=== PATIENT | male | born 1955 | race Caucasian/White ===

== ENCOUNTER 2017-01-27 15:40 | Emergency (ER) | payer MEDICARE ==
--- NOTE | ~2017-01-27 | CR72 ---
[facility] A Service of [facility] & [facility] RADIOLOGY TEXT RESULTS PATIENT: ROBERTA HENDRICKSON LOCATION: [facility] : 59 UNIT #: [id number] AGE: [address]: Delgado Headley MD SEX: M ORDER DR: [id number] [facility] [address] [place], [place] [address] [id number] E MR#: [id number] #: [id number] NAME: ROBERTA HENDRICKSON : 1955 SEX: M STUDY DATE/TIME: 01/27/2017 15:18 UNIT: [facility] ROOM: STUDY DESCRIPTION: CR Chest Single View Portable Attending Physician: Delgado Headley M.D. Ordering Physician: Delgado Headley M.D. Primary Care Physician: Generic Doctor Not In System MEDICAL IMAGING REPORT This report is preliminary unless electronic signature is present EXAM Portable chest HISTORY Chest pain today. No injury. FINDINGS The cardiac size and pulmonary vascularity are normal. No infiltrates or effusions. Mild bibasilar linear atelectasis or scarring is new compared to 10/17/2013. Multiple small calcified granulomas in the mid and lower lungs bilaterally. Cardiac and mediastinal contours are normal. IMPRESSION 1. No acute findings and no active disease. 2. Mild linear atelectasis or scarring in both lung bases and incidental small calcified granulomas bilaterally. Dictated by... Unruly Singleton M.D. THIS IS AN ELECTRONICALLY VERIFIED REPORT Unruly Singleton M.D. at 01/27/2017 11:03 PM JOSE/malissa TD: 01/27/2017 21:02 JOB #: [id number] MEDICAL IMAGING REPORT Page 1 of 1 COPY
--- NOTE | ~2017-01-27 | EKG ---
PATIENT: ROBERTA HENDRICKSON UNIT #: [id number] Ventricular Rate: 63 BPM Atrial Rate: 63 BPM P-R Interval: 140 ms QRS Duration: 88 ms Q-T Interval: 452 ms QTC Calculation(Bezet): 462 ms P [place]: 43 degrees Calculated R [place]: 55 degrees Calculated T [place]: 54 degrees Diagnosis Line: Normal sinus rhythm Diagnosis Line: Normal ECG Diagnosis Line: No previous ECGs available Diagnosis Line: Confirmed by DAVID TOMPKINS MD ([id number]) on 01/29/2017 Diagnosis Line: 2:49:44 PM INTERPRETING MD: LEDA DANIELLE
[2017-01-27 15:23] LABS: BASOPHIL% 0.1 % (0-2.5); EOSINOPHIL# 0.1 X10e3 (0-0.7); EOSINOPHIL% 0.9 % (0.0-7.0); HEMATOCRIT 40.9 % (38.0-50.0); HEMOGLOBIN 13.9 gm/dL (13.0-16.0); LYMPHOCYTE# 2.7 X10e3 (1.0-3.5); LYMPHOCYTE% 41.2 % (17.0-45.0); MEAN CELL VOLUME 97.7 FL (83-96); MEAN CORPUSCULAR HEMOGLOBIN 33.3 PG (28-34); MEAN CORPUSCULAR HGB CONC 34.1 g/dL (30-36); MEAN PLATELET VOLUME 8.9 FL (6.5-11.5); MONOCYTE# 0.7 X10e3 (0-1.0); NEUTROPHIL% 46.8 % (40-75); PLATELET COUNT 178 X10e3 (140-420); RED BLOOD COUNT 4.19 X10e (3.90-5.60); RED CELL DISTRIBUTION WIDTH 11.7 % (11.0-15.5); WHITE BLOOD COUNT 6.5 X10e3 (4.0-10.5)
[2017-01-27 15:24] LABS: DIFF IND NO
[2017-01-27 15:32] LABS: POC - CKMB <1.0 ng/mL (0.0-7.9); POC - TROPONIN <0.05 ng/mL (<=0.05)
[2017-01-27 15:46] LABS: ALBUMIN SERUM 4.8 g/dL (3.5-5.0); BILIRUBIN, DIRECT 0.1 mg/dL (0.0-0.2); BILIRUBIN,INDIRECT 0.6 mg/dL (0.0-0.9); BILIRUBIN,TOTAL 0.7 mg/dL (0.2-2.0); BUN/CREATININE RATIO 16.36; CALCIUM SERUM 9.8 mg/dL (8.4-10.2); CREATININE SERUM 1.1 mg/dL (0.6-1.4); GLOM FILT RATE Estimated 73.1 mL/min (>60); POTASSIUM 3.4 mmol/L (3.5-5.1); PROTEIN TOTAL SERUM 8.1 g/dL (6.0-8.3)
[2017-01-27 16:49] LABS: POC - CKMB <1.0 ng/mL (0.0-7.9); POC - TROPONIN <0.05 ng/mL (<=0.05)
== END 2017-01-27 17:09 | disposition home or self-care (01) ==
LOC: CED 15:40
PROVIDERS: Emergency Medicine
DX: R07.2 Precordial pain (principal); I95.9 Hypotension, unspecified; I10 Essential (primary) hypertension; Z87.891 Personal history of nicotine dependence
CPT/HCPCS: 36415; 71010; 80048; 80076; 82553; 84484; 85025; 93005; 96361; 96374; 96375; 99284; C9113; J2765